=== PATIENT | female | born 1975 | race Caucasian/White ===

== ENCOUNTER 2017-06-09 16:33 | Emergency (ER) | payer OTHER ==
[~2017-06-09] VITALS: Ht 162.6 cm; Wt 88.9 kg
[~2017-06-09 16:33] MED LIST: ALBINS INH; ALBUAER2 INH; CLR10 PO; FLUO20CA35 PO; NAPR-1169 PO; OXYC1TAB3 PO; PRLSR20 PO; [UNRECOGNIZED DRUG - OTHER] PO
[2017-06-09 16:36] VITALS: TEMP 36.3; Ht 162.6 cm; Wt 88.9 kg
--- NOTE | 2017-06-09 17:22 | EMERGENCY ROOM VISIT NOTE ---
History Report prepared by Dae: Lamont Carlson Under the Supervision of: Dr. Thom Martinez M.D. First contact with patient: 17:03 Chief Complaint: CHEST PAIN Stated Complaint: CHEST PAIN/TIGHTNESS,SWELLED BREAST,SOB Nursing Triage Summary: patient with pain in the chest and tightness and pain in shoulder. saw PCP on wednesday and did ekg and gave medication steroids for shoulder and sent her home. she has had no improvment in pain. has cough with yellow mucus. denies fever but has chills. 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 She describes the pain as tightness and is radiating to her back and abdomen, causing her shortness of breath. She currently rates the pain an 8/10 in severity. She notes the pain lasts for 5 minutes. She notes that she has had chest pain in the past, though this pain is different. She notes swelling in both of her breasts, ankles and wrists. She notes nausea, chills, and a persistent productive cough with yellow sputum. She notes recent shoulder pain for which she reported to her PCP and they prescribed her steroids, though the pain has not improved. She notes a recent fall 6 days ago, though the chest pain was present prior to the fall. She has a history of MS, asthma, hypertension, acid reflux, cholecystectomy, hysterectomy, and cysts in both breasts. She has had a stress test in the past. She denies any myocardial infarctions, thyroid problems , or blood clots. She denies any fevers, , diaphoresis, jaw pain, or arm pain. 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 She notes shoulder pain. She denies jaw pain or arm pain. Review of Systems See HPI for pertinent positives & negatives. A total of 10 systems reviewed and were otherwise negative. Past Medical & Surgical Medical Problems: (1) Acid reflux (2) Asthma (3) Eczema (4) HTN (hypertension) Surgical Problems: (1) History of appendectomy (2) History of cholecystectomy (3) Previous section Old medical records were reviewed. Nurse's notes were reviewed and I agree with. Family History FH: HTN (hypertension) FH: cancer FH: diabetes mellitus FH: gallbladder disease FH: heart disease FH: kidney disease FH: lung disease Social History Smoking Status: Current Every Day Smoker (1 ppd) Alcohol Use: none Drug Use: none Marital Status: Housing Status: lives with significant other Occupation Status: employed Current/Historical Medications Scheduled Buspirone Hcl (Buspirone Hcl), 10 MG PO BID Fluoxetine (Prozac), 40 MG PO QPM Hydrochlorothiazide (Hctz), 25 MG PO DAILY Pantoprazole Sodium (Protonix), 40 MG PO DAILY Ranitidine (Zantac), 150 MG PO BID Scheduled PRN Albuterol (Ventolin Hfa), 2 PUFFS INH Q6H PRN for SOB/Wheezing Albuterol Sulf (Albuterol Sulfate), 1 VIAL NEB Q4H PRN for SOB/Wheezing Hydroxyzine Hcl (Atarax), 10 MG PO Q6H PRN for Itching Loratadine (Claritin), 10 MG PO DAILY PRN for Allergy Symptoms Naproxen (Naprosyn), 500 MG PO TID PRN for Pain Tramadol (Ultram), 50 MG PO Q8H PRN for Severe Pain Allergies Coded Allergies: Acetaminophen (Verified Allergy, Intermediate, ANAPHYLAXIS, 12/16/11) Cefuroxime (Verified Allergy, Intermediate, HIVES, 12/16/11) Oxycodone (Verified Allergy, Intermediate, hives, 12/16/11) Cyclobenzaprine (Verified Allergy, Unknown, palpatations,swelling, 12/16/11 ) Moxifloxacin (Verified Adverse Reaction, Mild, SEVERE VOMITING, 12/16/11) Physical Exam Vital Signs Date Time Temp Pulse Resp B/P (MAP) Pulse Ox O2 Delivery O2 Flow Rate FiO2 06/09/17 19:12 85 18 132/82 95 06/09/17 18:03 86 19 135/120 95 06/09/17 17:16 89 06/09/17 17:16 92 Room Air 06/09/17 16:40 97 Room Air 06/09/17 16:36 36.3 96 20 138/85 95 Room Air Physical Exam General: Non-ill appearing middle-aged female in no acute distress. HEENT: Normal cephalic atraumatic. Pupils are equal round and reactive to light. Sclerae are anicteric. Extraocular movements are intact. Oropharynx is pink with moist mucous membranes. No swelling of the mouth lips or tongue. Neck: Supple with a midline trachea. No meningeal signs or stiffness, no JVD or bruits. No Stridor. Chest: Clear to auscultation bilaterally. No wheezes or rhonchi. No increased work of breathing. Reproducible tenderness to anterior chest. BREAST: (In the presence of female nurse solar electric installer present) No redness or increased warmth. No discharge. No masses or swelling. Heart: regular rate and rhythm. Abdomen: Soft nontender, nondistended without rebound guarding or rigidity. Extremities: No cyanosis clubbing or edema. No calf tenderness or assymetry Spine/Back. Non tender to palpation. No CVA tenderness Skin: Good turgor without rashes. Neurologic exam: Cranial nerves two through 12 are intact. Motor and sensation are intact and symmetrical throughout. Medical Decision & Procedures ER Provider Diagnostic Interpretation: Radiology results as stated below per my review and radiologist interpretation: SINGLE VIEW CHEST CLINICAL HISTORY: Atypical chest pain. Dyspnea. FINDINGS: An AP, portable, upright chest radiograph is compared to study dated 01/01/2012. The cardiomediastinal silhouette is unremarkable. The lungs and pleural spaces are clear. No pneumothorax is seen. The bony thorax is grossly intact. IMPRESSION: No active disease in the chest. Electronically signed by: Jc Champion M.D. 06/09/2017 5:36 PM Dictated Date/Time: 06/09/2017 5:36 PM Laboratory Results 06/09/17 17:35 Red Blood Count 5.41, Mean Corpuscular Volume 86.0, Mean Corpuscular Hemoglobin 30.3, Mean Corpuscular Hemoglobin Concent 35.3, Mean Platelet Volume 9.4 06/09/17 17:35 Test 06/09/17 17:35 06/09/17 17:44 White Blood Count 18.19 K/uL (4.8-10.8) Red Blood Count 5.41 M/uL (4.2-5.4) Hemoglobin 16.4 g/dL (12.0-16.0) Hematocrit 46.5 % (37-47) Mean Corpuscular Volume 86.0 fL (80-100) Mean Corpuscular Hemoglobin 30.3 pg (25-34) Mean Corpuscular Hemoglobin Concent 35.3 g/dl (32-36) Platelet Count 287 K/uL (130-400) Mean Platelet Volume 9.4 fL (7.4-10.4) RDW Standard Deviation 45.6 fL (36.4-46.3) RDW Coefficient of Variation 14.6 % (11.5-14.5) Neutrophils % (Manual) 31.6 % Lymphocytes % (Manual) 33.2 % Variant Lymphocytes % (manual) 21.1 % Monocytes % (Manual) 8.8 % Eosinophils % (Manual) 4.4 % Basophils % (Manual) 0.9 % Neutrophils # (Manual) 5.75 K/uL (1.4-6.5) Total Absolute Neutrophils 5.75 K/uL (1.4-6.5) Lymphocytes # (Manual) 6.04 K/uL (1.2-3.4) Absolute Variant Lymphocytes 3.84 K/uL Total Absolute Lymphocytes 9.88 K/uL (1.2-3.4) Monocytes # (Manual) 1.60 K/uL (0.11-0.59) Eosinophils # (Manual) 0.80 K/uL (0-0.5) Basophils # (Manual) 0.16 K/uL (0-0.2) Red Blood Cell Morphology Unremarkable Anion Gap 8.0 mmol/L (3-11) Est Creatinine Clear Calc Drug Dose 91.1 ml/min Estimated GFR () 95.9 Estimated GFR (Non- 82.7 BUN/Creatinine Ratio 16.1 (10-20) Calcium Level 9.6 mg/dl (8.5-10.1) Total Bilirubin 0.2 mg/dl (0.2-1) Direct Bilirubin < 0.1 mg/dl (0-0.2) Aspartate Amino Transf (AST/SGOT) 24 U/L (15-37) Alanine Aminotransferase (ALT/SGPT) 57 U/L (12-78) Alkaline Phosphatase 100 U/L (45-117) Total Creatine Kinase 216 U/L (26-192) Creatine Kinase MB 1.8 ng/ml (0.5-3.6) Creatine Kinase MB Ratio 0.8 (0-3.0) Total Protein 8.4 gm/dl (6.4-8.2) Albumin 4.0 gm/dl (3.4-5.0) Lipase 179 U/L (73-393) Thyroid Stimulating Hormone (TSH) 3.630 uIu/ml (0.300-4.500) Bedside D-Dimer 430 ng/mlFEU (0-450) Bedside Troponin I < 0.030 ng/ml (0-0.045) Laboratory studies as stated above per my review. ECG Indication: chest pain Rate (beats per minute): 90 Rhythm: normal sinus Findings: no acute ischemic change, no ectopy Change: no significant change (12/16/2011) ED Course 1703: Past medical records reviewed. The patient was evaluated in room A9, and a complete history and physical examination were performed. 1836: I reassessed the patient at this time. She is feeling better and resting comfortably. I discussed the results and treatment plan with the patient. I answered all pertaining questions that she had. She expressed understanding and verbalized agreement. The patient will be discharged home. Medical Decision Differentials include, but are not limited to: cardiac disease, pulmonary disease, infection, trauma, costochondritis, and electrolyte metabolic abnormality. This patient comes in as described above. She has chest pain that is reproducible and atypical . She also has pain in her right breast. There is no abnormality seen on her breast to suggest infection or abscess. The symptoms have been going on for several weeks. IV access established and EKG was obtained. There is nothing to suggest acute coronary syndrome or arrhythmia. Chest x-ray was unremarkable. Her d-dimer is on unremarkable and in a low pretest probability this makes PE highly unlikely. Her white count was elevated at 18,000. I did look at her labs from last week and it was on the elevated side in the high 12,000. Since then, she's also been on steroids for shoulder that likely cause the bump in the white count. She has nothing to suggest infection otherwise. Her abdomen is benign. Chest x-ray does not suggest pneumonia. I think this most like is more musculoskeletal or possibly GI. She should follow up with her regular doctor and return if: increasing pain , worsening of symptoms, fever or chills, any new problems or concerns. Medication Reconcilliation Current Medication List: was personally reviewed by me Blood Pressure Screening Patient's blood pressure: Elevated blood pressure Blood pressure disposition: Elevated BP felt to be situational, Referred to PCP Impression Primary Impression: Substernal precordial chest pain Additional Impression: Acute costochondritis Scribe Attestation The scribe's documentation has been prepared under my direction and personally reviewed by me in its entirety. I confirm that the note above accurately reflects all work, treatment, procedures, and medical decision making performed by me. Departure Information Dispostion Home / Self-Care Referrals Louisa Tillman M.D. (PCP) Forms Call Back Authorization, HOME CARE DOCUMENTATION FORM, IMPORTANT VISIT INFORMATION Patient Instructions My [facility] [employer] Additional Instructions Rest. Drink plenty of fluids. Continue Naprosyn in the [id number] dosages. Take with food Return if: Worsening of symptoms, fever or chills, increasing pain or problems, any new problems or concerns Follow-up with your doctor tomorrow for recheck Problem Qualifiers
--- NOTE | 2017-06-09 17:38 | DIAGNOSTIC IMAGING REPORT ---
SINGLE VIEW CHEST CLINICAL HISTORY: Atypical chest pain. Dyspnea. FINDINGS: An AP, portable, upright chest radiograph is compared to study dated 01/01/2012. The cardiomediastinal silhouette is unremarkable. The lungs and pleural spaces are clear. No pneumothorax is seen. The bony thorax is grossly intact. IMPRESSION: No active disease in the chest. Electronically signed by: Jc Champion M.D. 06/09/2017 5:36 PM Dictated Date/Time: 06/09/2017 5:36 PM
[2017-06-09 18:00] LABS: HEMATOCRIT 46.5 % (37-47); MEAN CORPUSCULAR HEMOGLOBIN 30.3 pg (25-34); MEAN CORPUSCULAR HGB CONC 35.3 g/dl (32-36); MEAN PLATELET VOLUME 9.4 fL (7.4-10.4); PLATELET COUNT 287 K/uL (130-400); RED BLOOD COUNT 5.41 M/uL (4.2-5.4); WHITE BLOOD COUNT 18.19 K/uL (4.8-10.8)
[2017-06-09 18:03] LABS: POINT OF CARE TROPONIN I < 0.030 ng/ml (0-0.045)
[2017-06-09 18:16] LABS: ALT/SGPT 57 U/L (12-78); BLOOD UREA NITROGEN 14 mg/dl (7-18); BUN/CREATININE RATIO 16.1 (10-20); CALCIUM 9.6 mg/dl (8.5-10.1); CARBON DIOXIDE 28 mmol/L (21-32); CHLORIDE 102 mmol/L (98-107); CREATININE 0.86 mg/dl (0.60-1.20); GLUCOSE 93 mg/dl (70-99); SODIUM 138 mmol/L (136-145)
[2017-06-09 18:27] LABS: ALKALINE PHOSPHATASE 100 U/L (45-117); AST/SGOT 24 U/L (15-37); CKMB/CK RATIO 0.8 (0-3.0)
[2017-06-09] MEDS ORDERED: PANT40TA PO (18:35)
[2017-06-09] MEDS ORDERED: HYDR-389 PO (18:35)
[2017-06-09] MEDS ORDERED: ALBINS NEB (18:35)
[2017-06-09] MEDS ORDERED: BUSP-8 PO (18:35)
[2017-06-09] MEDS ORDERED: HYDR25TA4 PO (18:35)
[2017-06-09] MEDS ORDERED: TRAM-10 PO (18:35)
[2017-06-09] MEDS ORDERED: PRVHFAIN INH (18:35)
[2017-06-09] MEDS ORDERED: ZNTT/150 PO (18:35)
[2017-06-09 18:45] LABS: BASO ABS # 0.16 K/uL (0-0.2); BASOPHIL % 0.9 %; COMPLETE YES; EOSINOPHIL % 4.4 %; LYMPH ABS # 6.04 K/uL (1.2-3.4); LYMPHOCYTE % 33.2 %; NEUTROPHILS % 31.6 %; VARIANT LYM ABS # 3.84 K/uL; VARIANT LYMPHOCYTE % 21.1 %
[2017-06-09 19:12] VITALS: BP 132/82; PULSE 85; O2SAT 95
== END 2017-06-09 19:13 | disposition home or self-care (01) ==
LOC: C.EDB 16:34 → C.EDA 19:13
DX: R07.2 Precordial pain (principal); M94.0 Chondrocostal junction syndrome [Tietze]; I10 Essential (primary) hypertension; K21.9 Gastro-esophageal reflux disease without esophagitis; J45.909 Unspecified asthma, uncomplicated; F17.200 Nicotine dependence, unspecified, uncomplicated; Z90.49 Acquired absence of other specified parts of digestive tract; Z98.890 Other specified postprocedural states; Z79.899 Other long term (current) drug therapy; Z88.5 Allergy status to narcotic agent; Z88.6 Allergy status to analgesic agent; Z88.8 Allergy status to other drugs, medicaments and biological substances; Z82.49 Family history of ischemic heart disease and other diseases of the circulatory system; Z80.9 Family history of malignant neoplasm, unspecified; Z83.3 Family history of diabetes mellitus; Z83.79 Family history of other diseases of the digestive system; Z84.1 Family history of disorders of kidney and ureter